=== PATIENT | female | born 2000 | race Caucasian/White ===

== ENCOUNTER 2025-10-08 21:05 | Emergency (ER) | payer OTHER, SELFPAY ==
[2025-10-08 21:05] VITALS: BMI 37.2
[2025-10-08 21:08] VITALS: BP 160/97
[2025-10-08 22:30] VITALS: BP 147/100
--- NOTE | 2025-10-08 23:11 | ED.SKININJ ---
HPI-Injury
General
Chief Complaint: Bite
Source: patient
Exam Limitations: none
Time Seen by Provider: 10/08/25 22:36
Nursing documentation reviewed up to this point in time: agreed with
History of Present Illness-Injury
Is this injury a work related problem?: No
Is pt an associate of [facility]?: No
Initial Injury comments:
Patient to ED with concern of possible rabies exposure. She states that her dog was in a [place]. When she attempted to remove her dog a bat flew out. She was unsure if her dog was bit by the bat. She took her dog to the vet and a rabies booster
was administered at that time. She is concerned that she was exposed to contaminated saliva on her dog. She has a history of eczema and is multiple open areas on her hands. To ED accompanied by family. Exposure occurred 2 days ago.
Past History
Past History
ED Past Medical History: Asthma and Other (Eczema)
Review of Systems
Review of Systems
Allergies reviewed?: Yes
All Other Systems: ROS reviewed and negative except as documented in HPI and ROS
Constitutional: Reports no symptoms
EENT: Reports no symptoms
Respiratory: Reports no symptoms
Cardiac: Reports no symptoms
ABD/GI: Reports no symptoms
: Reports no symptoms
Musculoskeletal: Reports no symptoms
Skin: Reports no symptoms
Neurological: Reports no symptoms
Psychiatric: Reports no symptoms
Phy Exam
General Physical Exam
General Presentation: well appearing and no apparent distress
General Skin: warm and dry
General Habitus: normal
General Mental: alert
Musculoskeletal Exam
Musculoskeletal Exam: full ROM and neuro vasc intact
Skin Exam
Skin Exam: normal color, warm/dry and no rash
Psychiatric Exam
Psychiatric Exam: normal mood/affect
Course
Orders/Labs/Results
Orders:
Orders
10/08/25 23:07
Rabies Immune Globulin/Pf [HyperRAB] 1,904 unit IM NOW STA
Rabies Vaccine (Pcec)/Pf [Rabavert Rabies Vacc W-Diluent] 2.5 unit IM .ONCE ONE
Vital Signs
Initial and Last Documented VS:
Initial Vital Signs
Temp Pulse Resp BP Pulse Ox
98.2 F 80 18 160/97 99
10/08/25 21:08 10/08/25 21:08 10/08/25 21:08 10/08/25 21:08 10/08/25 21:08
Last Documented Vital Signs
Temp Pulse Resp BP Pulse Ox
98.2 F 88 16 147/100 98
10/08/25 21:08 10/08/25 22:30 10/08/25 22:30 10/08/25 22:30 10/08/25 22:30
*Pulse Oximetry
SaO2: 98
Oxygen Mode of Delivery: Room air
Patient hypoxic: no
*Critical Care Note
Total Time (30-74mins, 75-104mins- exclusive of procedures): Not Applicable
Update Note
Update Note:
Patient to the emergency department with concern of possible rabies exposure. States her dog was possibly bit her head contact with a bat 2 days ago. Dog was taken to the vet and was given a rabies booster. Patient states she has many open cuts
on her hands due to a known history of eczema. She is concerned that there could have been rabies exposure to her hands from the [place] on her dog. Rabies risks discussed with her as well as the risk benefit of rabies vaccine. Patient has
decided that she would like to proceed with the rabies vaccine. First dose was given in the ED along with the rabies immunoglobulin. She will be discharged home and will follow-up with the infusion center for the remaining 3 doses of rabies
vaccine.
ED Attending Note
-
Portions of this chart may have been created with voice recognition software.� Occasional wrong word or��sound alike� substitutions may have occurred due to the inherent limitations of voice recognition software.
Discharge Plan
Departure
Patient Disposition: Home (Routine Discharge)
Date of Disposition: 10/08/25
Time of Disposition: 23:08
Patient with high blood pressure during this ER visit?: No
Condition: Good
Covid-19: Not Applicable
Discharge Problem:
Rabies exposure
Instructions: Rabies Vaccine
Prescriptions:
New
RabAvert (PF) 2.5 unit Suspension For Reconstitution
1 ml IM . DIRECTED Qty: 3 0RF
Rx Instructions:
See Rabies Vaccine Post Exposure Prophylaxis Instruction Sheet for Dosing Instructions
Stand Alone Forms: Rabies Vaccine Post Exp Dosing
Activity Restrictions/Additional Instructions:
Follow up at the infusion center for the remaining rabies vaccine doses.
Interventions
Interventions:
*Risk Screen - Suicide Last Done: 10/08/25 21:08
*General Assessment Last Done: 10/08/25 21:08
*Neglect/Abuse Screening Last Done: 10/08/25 21:08
ED-Skin Assessment Last Done: 10/08/25 22:30
Discharge Date and Time
Print Language: ESTONIAN
[2025-10-09] MEDS: RABAVERT RABIES VACC W-DILUENT 2.5 UNIT IM (01:01)
== END 2025-10-09 01:00 | disposition home or self-care (01) ==
LOC: EMR 21:05
PROVIDERS: EMERGENCY PHYSICIAN Emergency Medicine; FAMILY PHYSICIAN Internal Medicine
DX: Z20.3 Contact with and (suspected) exposure to rabies (principal); Z23 Encounter for immunization; Z29.14 Encounter for prophylactic rabies immune globulin
CPT/HCPCS: 90471; 96372; 99284; 90375; 90675

== ENCOUNTER 2025-10-22 07:51 | Outpatient (RCR) | payer OTHER, SELFPAY ==
[2025-10-11 08:04] VITALS: BP 137/88
[2025-10-11] MEDS: RABAVERT RABIES VACC W-DILUENT 2.5 UNIT IM (08:11)
[2025-10-15 07:50] VITALS: BP 124/79
[2025-10-15] MEDS: RABAVERT RABIES VACC W-DILUENT 2.5 UNIT IM (08:10)
[2025-10-22 07:50] VITALS: BP 133/91
[2025-10-22] MEDS: RABAVERT RABIES VACC W-DILUENT 2.5 UNIT IM (08:02)
== END 2025-10-28 23:59 | disposition home or self-care (01) ==
LOC: OID 07:51
PROVIDERS: ATTENDING PHYSICIAN Emergency Medicine; FAMILY PHYSICIAN Internal Medicine
DX: Z20.3 Contact with and (suspected) exposure to rabies (principal); Z23 Encounter for immunization
CPT/HCPCS: 90471; 90675